=== PATIENT | male | born 1960 | race Two or more races ===

== ENCOUNTER → 2018-08-27 | Outpatient (CLI) | payer OTHER ==
[~2018-08-27] MED LIST: REGADENOSON 0.4 MG/5 ML PF SYRINGE IVP ONE; SESTAMIBI TC99M/UD ISOTOPE 1 EA INJ INJ ONE
[2018-08-27 08:35] VITALS: BP 120/66
[2018-08-27 10:00] VITALS: BP 141/65
== END | disposition home or self-care (01) ==
LOC: CARDMN 08:08
PROVIDERS: ATTEND Internal Medicine Cardiovascular Disease
DX: I25.89 Other forms of chronic ischemic heart disease (principal); I50.1 Left ventricular failure, unspecified
CPT/HCPCS: 78452; 93017; 93306; A9500; J2785

== ENCOUNTER 2021-12-31 19:24 | Emergency (ER) | payer OTHER ==
[~2021-12-31] VITALS: Ht 185.4 cm; Wt 131.0 kg
[~2021-12-31 19:24] MED LIST changes: +ATOR20TA86 PO; +BACTDSB PO; +INSLAN SQ; +INSU100V SQ; +METF-1211 PO; +MONT-35 PO; -REGADENOSON 0.4 MG/5 ML PF SYRINGE IVP ONE; -SESTAMIBI TC99M/UD ISOTOPE 1 EA INJ INJ ONE
[2021-12-31 20:09] VITALS: BP 145/82
== END 2021-12-31 20:36 | disposition home or self-care (01) ==
LOC: EMS 19:24
DX: L97.529 Non-pressure chronic ulcer of other part of left foot with unspecified severity (principal); L97.519 Non-pressure chronic ulcer of other part of right foot with unspecified severity; J44.9 Chronic obstructive pulmonary disease, unspecified; E11.9 Type 2 diabetes mellitus without complications; E78.00 Pure hypercholesterolemia, unspecified; I10 Essential (primary) hypertension; Z89.411 Acquired absence of right great toe; Z88.1 Allergy status to other antibiotic agents; Z88.8 Allergy status to other drugs, medicaments and biological substances
CPT/HCPCS: 82962; 99282

== ENCOUNTER 2024-01-11 22:16 | Emergency (ER) | payer OTHER ==
[~2024-01-11] VITALS: Ht 185.4 cm; Wt 130.4 kg
[~2024-01-11 22:16] MED LIST changes: +AMLO10TA55 PO; +ASPI81TA87 PO; +ATOR20TA PO; -ATOR20TA86 PO; -BACTDSB PO; +BUDE10.27 IH; +GABA-1201 PO; -INSLAN SQ; +INSU100I26 SQ; +IPRA0.2S49 NEB; +IPRAHFA IH; +LOSA-382 PO; +METR500 PO
[2024-01-11 22:21] VITALS: BP 163/79; PULSE 75; RESP 16; TEMP 98
== END 2024-01-11 22:43 | disposition left against medical advice (07) ==
LOC: EMS 22:16
DX: Z53.21 Procedure and treatment not carried out due to patient leaving prior to being seen by health care provider (principal)

== ENCOUNTER 2024-02-01 13:38 | Emergency (ER) | payer OTHER ==
[~2024-02-01] VITALS: Ht 185.4 cm; Wt 81.4 kg
[2024-02-01 13:50] VITALS: TEMP 98.2
[2024-02-01 16:10] VITALS: BP 118/66; PULSE 86; RESP 16
== END 2024-02-01 16:21 | disposition home or self-care (01) ==
LOC: EMS 13:40
DX: L03.116 Cellulitis of left lower limb (principal); E11.9 Type 2 diabetes mellitus without complications; E78.00 Pure hypercholesterolemia, unspecified; I10 Essential (primary) hypertension; J44.9 Chronic obstructive pulmonary disease, unspecified; M86.8X7 Other osteomyelitis, ankle and foot
CPT/HCPCS: 99281; Z7502